=== PATIENT | female | born 1960 | race Caucasian/White ===

== ENCOUNTER 2021-09-01 15:18 | Emergency (ER) | payer BC, SELFPAY ==
--- NOTE | 2021-09-01 15:47 | HMH.EDUTC ---
[facility] [place] Disposition Clinical Impression: Acute bronchitis Qualifiers: Bronchitis organism: unspecified organism Qualified Code(s): J20.9 - Acute bronchitis, unspecified Sinusitis Qualifiers: Sinusitis location: unspecified location Chronicity: acute Recurrence: non-recurrent Qualified Code(s): J01.90 - Acute sinusitis, unspecified Disposition: Home, Self-Care Condition on Discharge: Good Instructions: DI for Sinusitis, DI for Acute Bronchitis Additional Instructions: Drink plenty of fluids. Take tylenol for pain or fever. Take the medications as directed. Follow up with your regular doctor. GO TO THE ER FOR ANY WORSENING SYMPTOMS Don't start the oral steroids until tomorrow, since you had the shot here today. The cough medication (promethazine dm) will make you drowsy, so don't drive or operate heavy machinery after taking it. Prescriptions: Promethazine/Dextromethorphan [Promethazine-Dm Syrup] 5 ml PO Q6HP PRN #240 ml PRN Reason: Cough Transmission Status: Received by [id number] Amoxicillin/Potassium Clav [Amox-Clav 875-125 mg Tablet] 1 tab PO BID #20 tab Transmission Status: Received by [facility] predniSONE [Deltasone 10mg tablet] 10 mg PO DAILY 9 Days #21 tab Transmission Status: Received by [facility] guaiFENesin [Mucinex 600mg tablet] 1 - 2 tab PO BIDP PRN #30 tab PRN Reason: Congestion Transmission Status: Received by [facility] Referrals: Provider,Referral, MD [Primary Care Provider] - Time of Disposition: 16:36 Medical Decision Making - Medical Records Medical records reviewed: No: I reviewed the patient's medical records. - Kaushik Inquiry Pt receiving controlled substance: No Vital Signs: 09/01/21 15:51 09/01/21 16:53 Temperature 97.7 F 97.7 F Temperature Source Oral Pulse Rate 83 Pulse Rate [Left Radial] 83 Respiratory Rate 20 20 Blood Pressure 151/70 H Blood Pressure [Right Arm] 151/70 H Blood Pressure Mean [Right Arm] 97 02 Sat by Pulse Oximetry 92 L Orders (Tests/Meds): ED MEDICATIONS Discontinued Medications Generic Name Dose Route Start Last Admin Trade Name Freq PRN Reason Stop Dose Admin Ceftriaxone Sodium 1 gm 09/01/21 16:23 05/30/22 16:47 Ceftriaxone 1gm Vial IM 09/01/21 16:24 1 gm ONCE ONE Administration Lidocaine HCl 0 ml 09/01/21 16:23 09/01/21 16:48 Lidocaine 1% 5ml Pf Vial IM 09/01/21 16:24 2 ml ONCE ONE Administration Methylprednisolone Sodium Succinate 125 mg 09/01/21 16:23 09/01/21 16:48 Methylprednisolone Sod Succ 125mg Vial IM 09/01/21 16:24 125 mg ONCE ONE Administration [facility] [place] HPI - General Stated complaint: congestion and Left ear Time Seen by Provider: 09/01/21 15:47 - History of Present Illness Provider Complaint: She states that around 5 days ago she started having left ear pain and sinus congestion. She is now developing chest congestion and a productive cough with yellow sputum. - Related Data Previous Rx's Medication Instructions Recorded Amoxicillin/Potassium Clav 1 tab PO BID #20 tab 09/01/21 [Amox-Clav 875-125 mg Tablet] Promethazine/Dextromethorphan 5 ml PO Q6HP PRN #240 ml 09/01/21 [Promethazine-Dm Syrup] guaiFENesin [Mucinex 600mg tablet] 1 - 2 tab PO BIDP PRN #30 tab 09/01/21 predniSONE [Deltasone 10mg tablet] 10 mg PO DAILY 9 Days #21 tab 09/01/21 Allergies Allergy/AdvReac Type Severity Reaction Status Date / Time No Known Allergies Allergy Verified 09/01/21 15:55 [facility] History - Hepatitis A Screen Attestation statement:: This patient has been screened for Hepatitis A risk factors. I have reviewed the patient's past medical history: Yes ROS Obtained: Yes All systems reviewed & no additional complaints - Constitutional Constitutional: Reports as per HPI - Eyes Eyes: Denies eye discharge - ENT Ears, Nose, Mouth, and Throat: Reports as per HPI - Cardiovascular Cardiovascular: De
--- NOTE | 2021-09-01 15:49 | XR_ITS ---
PROCEDURE INFORMATION: Exam: XR Chest Exam date and time: 09/01/2021 4:08 PM Age: 61 years old Clinical indication: Cough TECHNIQUE: Imaging protocol: XR of the chest. Views: 2 views. COMPARISON: No relevant prior studies available. FINDINGS: Lungs: Mild peribronchial thickening at the left lung base. Findings compatible with bronchitis. Pleural spaces: Unremarkable. No pleural effusion. No pneumothorax. Heart/Mediastinum: Unremarkable. No cardiomegaly. Bones/joints: Unremarkable. IMPRESSION: Findings compatible with bronchitis. The
[2021-09-01 15:51] VITALS: BP 151/70; PULSE 83; RESP 20; TEMP 36.5; O2SAT 92; BMI 32.3
[2021-09-01 16:53] VITALS: BP 151/70; PULSE 83; RESP 20; TEMP 36.5
== END 2021-09-01 16:54 | disposition home or self-care (01) ==
PROVIDERS: Emergency Provider Nurse Practitioner Family
DX: J20.9 Acute bronchitis, unspecified (principal); J01.90 Acute sinusitis, unspecified; H92.02 Otalgia, left ear; Z79.52 Long term (current) use of systemic steroids
CPT/HCPCS: 71046; 96372; 99213; G0463; J0696